=== PATIENT | female | born 2000 | race African-American/Black ===

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

== ENCOUNTER 2022-06-14 06:12 | Emergency (ER) | payer OTHER ==
[~2022-06-14] VITALS: Ht 167.6 cm; Wt 70.0 kg
[2022-06-14 06:25] VITALS: BP 101/68
[2022-06-14] MEDS ORDERED: ACETAMINOPHEN 325MG TABLET PO ONE (07:30)
[2022-06-14] MEDS ORDERED: TOPUD PO (08:44)
== END 2022-06-14 08:54 ==
LOC: ER 06:12
DX: S05.12XA Contusion of eyeball and orbital tissues, left eye, initial encounter (principal); Y04.2XXA Assault by strike against or bumped into by another person, initial encounter; Y93.89 Activity, other specified; Y92.89 Other specified places as the place of occurrence of the external cause
CPT/HCPCS: 70486; 76512; 99284

== ENCOUNTER 2025-03-04 09:31 | Emergency (ER) | payer MEDICAID, OTHER ==
[~2025-03-04] VITALS: Ht 160 cm; Wt 64.0 kg
[~2025-03-04 09:31] MED LIST: TOPUD PO
[2025-03-04 09:39] VITALS: O2SAT 100
[2025-03-04] MEDS ORDERED: TOPUD MT (12:02)
[2025-03-04] MEDS ORDERED: IBUP-1523 MT (12:02)
[2025-03-04] MEDS: ACETAMINOPHEN 325MG TABLET PO ONE (12:13)
[2025-03-04] MEDS: IBUPROFEN 600MG TABLET PO ONE (12:13)
[2025-03-04 12:21] VITALS: BP 125/70; PULSE 66; RESP 15; TEMP 36.7; O2SAT 100
== END 2025-03-04 12:22 | disposition home or self-care (01) ==
LOC: ER 09:31
DX: S62.616A Displaced fracture of proximal phalanx of right little finger, initial encounter for closed fracture (principal); F41.9 Anxiety disorder, unspecified; Z79.899 Other long term (current) drug therapy; Z98.890 Other specified postprocedural states; X58.XXXA Exposure to other specified factors, initial encounter; Y93.89 Activity, other specified; Y92.89 Other specified places as the place of occurrence of the external cause; Y99.8 Other external cause status
CPT/HCPCS: 29130; 73130; 99283